=== PATIENT | female | born 1970 | race Caucasian/White ===

== ENCOUNTER 2020-11-30 08:41 | Outpatient (CLI) | payer BC, OTHER, SELFPAY ==
--- NOTE | ~2020-11-30 | MM_ITS ---
EXAMINATION: MM screening [facility] BI w jon HISTORY: Screening mammogram TECHNIQUE: Craniocaudal and mediolateral oblique 3-D tomosynthesis images were obtained and synthetic 2-D images were generated. CAD analysis was submitted and interpreted. COMPARISON: 07/03/2018, 07/02/2017, 06/22/2016 bilateral digital screening mammogram examinations BREAST PARENCHYMAL COMPOSITION: The breasts are heterogeneously dense, which may obscure small masses . FINDINGS: There is a 6 mm circumscribed mass 3 cm deep to the nipple and 7 mm circumscribed mass appr oximately 6.3 cm deep to the nipple on craniocaudal view. Diagnostic right mammogram and right breast ultrasound examination are recommended. No suspicious mass, architectural distortion or malignant calcification, skin thickening or retractio n of the left breast. There are scattered bilateral benign microcalcifications. IMPRESSION: 1. Right breast masses. 2. Diagnostic right mammogram and right breast ultrasound examination are recommended. BI-RADS Category 0: Incomplete: Needs additional imaging evaluation. Reviewed, dictated and finalized at location A. CIATE ACCOUNT MANAGER IMPRESSION: 1. Right breast masses. 2. Diagnostic right mammogram and right breast ultrasound examination are recom mended. BI-RADS Category 0: Incomplete: Needs additional imaging evaluation.
== END 2020-11-30 08:42 | disposition home or self-care (01) ==
LOC: ANHIMG 08:44
PROVIDERS: PCP Family Medicine; Visit Provider Obstetrics & Gynecology
DX: Z12.31 Encounter for screening mammogram for malignant neoplasm of breast (principal); R92.8 Other abnormal and inconclusive findings on diagnostic imaging of breast
CPT/HCPCS: 77063; 77067

== ENCOUNTER 2021-01-04 11:39 | Outpatient (CLI) | payer BC, OTHER, SELFPAY ==
--- NOTE | ~2021-01-04 | MMUS_ITS ---
EXAMINATION: MM diagnostic mammo unilat RT, US breast RT complete HISTORY: Follow-up right breast masses TECHNIQUE: Additional 3-D tomosynthesis images of the right breast were performed and synthetic 2-D i mages were generated. CAD analysis was submitted and interpreted. High resolution right breast ultras ound was performed. COMPARISON: Comparison to multiple prior studies sequentially, with oldest reviewed study dated 06/2014. BREAST PARENCHYMAL COMPOSITION: The breasts are heterogenously dense, which may obscure small masses. FINDINGS: MAMMOGRAPHIC FINDINGS: There is a 6 mm mass upper outer quadrant of the right breast, 3.5 cm from the nipple on CC view. Sub tle focal asymmetry laterally in the right breast on CC view in the middle third is less apparent wit h spot compression view. ULTRASOUND: Complete left breast ultrasound: There are are multiple cysts of the left breast at 7, 8 and 11:00 po sition of the breast, largest measuring 6 mm. These correspond to the area of mammographic abnormalit y. No suspicious sonographic abnormalities to suggest malignancy. IMPRESSION: 1. No evidence for malignancy in the right breast. Benign cysts. 2. Routine yearly screening mammogram and regular clinical breast examination are recommended. BI-RADS Category 2: Benign finding(s). Reviewed, dictated and finalized at location A. IMPRESSION: 1. No evidence for malignancy in the right breast. Benign cysts. 2. Routine yearly screening mammogram and regular clinical breast examination a re recommended. BI-RADS Category 2: Benign finding(s).
== END 2021-01-04 11:40 | disposition home or self-care (01) ==
LOC: ANHIMG 11:40
PROVIDERS: PCP Family Medicine; Visit Provider Obstetrics & Gynecology
DX: R92.8 Other abnormal and inconclusive findings on diagnostic imaging of breast (principal)
CPT/HCPCS: 76641; 77065

== ENCOUNTER → 2021-01-11 02:50 | Outpatient (CLI) | payer BC, OTHER, SELFPAY ==
[2021-01-11 18:08] LABS: SARS-CoV-2 RNA PCR Negative
== END ==
PROVIDERS: PCP Family Medicine; Visit Provider Internal Medicine Gastroenterology
DX: Z01.812 Encounter for preprocedural laboratory examination (principal); Z20.822 Contact with and (suspected) exposure to COVID-19
CPT/HCPCS: C9803; U0003; U0005

== ENCOUNTER 2021-01-14 00:41 | Day surgery (SDC) | payer BC, OTHER, SELFPAY ==
[2021-01-03 10:31] VITALS: BMI 25.9
[2021-01-14 10:33] VITALS: BP 115/80; PULSE 73; RESP 17; TEMP 36.8; O2SAT 98; BMI 25.9
[2021-01-14] MEDS: LACTATED RINGERS 1,000 ML 150 ML IV CONT (10:38)
--- NOTE | 2021-01-14 11:20 | WPDANESEPPF ---
Anes - Initial Pre Proc Eval Procedure: Operation Date: 01/14/21 11:30 Proposed Procedures p Screening Colonoscopy - Say Easton MD Date/Time: 01/14/21 11:20 Surgeon: Say Easton MD Pre Op Diagnosis: neoplasm screening Patient Data Age: 50 Gender: F Height: 5 ft 6 in Weight: 72.8 kg Last Vital Signs Temp 98.3 F 01/14/21 10:33 Pulse 73 01/14/21 10:33 Resp 17 01/14/21 10:33 BP 115/80 01/14/21 10:33 Pulse Ox 98 01/14/21 10:33 Allergies Allergy/AdvReac Type Severity Reaction Status Date / Time Sulfa (Sulfonamide Allergy Mild Hives Verified 01/14/21 10:31 Antibiotics) Home Medications Medication Instructions Recorded Confirmed Type fluticasone propionate 1 spray INTRANASAL DAILY 01/03/21 01/14/21 History Patient hx anesthesia problems: none Family hx anesthesia problems: none [facility] Past Medical History Medical History (Updated 01/14/21 @ 11:17 by Joo Washington MD) Healthy adult Social History Social History Smoking status: Never smoker Alcohol intake: never Substance use type: does not use Living arrangements: with family Spiritual care concerns: No Anes - Eval Final PreProcedure Day of Procedure 01/14/21 11:20 Patient weight: overweight Heart: regular rate and rhythm Lungs: clear to auscultation Airway: Mallampati scale class II Neurological: alert and oriented Last oral intake: >/= 8 hours ASA classification: II Emergent: no Anesthetic plan: proceed Anesthesia type and monitoring: general GIVS and standard monitoring Informed Consent: The patient's anesthetic plan and its attendant risks and benefits were discussed with the patient/family/POA. Questions were solicited and answers provided to the satisfaction of the patient/family/POA.
--- NOTE | 2021-01-14 11:45 | PM.HPGS ---
History of Present Illness History of Present Illness Consent: Risks, benefits, and alternatives have been discussed and questions answered. Patient agrees to proceed with procedure. Chief complaint: neoplasm screening Narrative: Twyla Lindsay is a 50 year old female here for first screening colonoscopy Review of Systems Constitutional: Constitutional: Denies headache(s) and Denies weakness Eyes: Eyes: Denies blurry vision ENT: Reports Normal hearing present, Denies headache(s) and Denies neck pain Cardiovascular: Cardiovascular: Denies chest pain and Denies dyspnea Respiratory: Respiratory: Denies dyspnea Gastrointestinal: Gastrointestinal: Reports no additional gastrointestinal complaints Genitourinary: Genitourinary: Denies dysuria Musculoskeletal: Musculoskeletal: Denies neck pain Integumentary/Breasts: Skin/Breast: Denies dry skin Neurologic: Reports Normal hearing present, Denies headache(s) and Denies weakness Psychiatric: Psychiatric: Denies anxiety Endocrine: Endocrine: Denies change in body appearance Hematologic/Lymphatic: Hematologic/Lymphatic: Denies easy bleeding Allergic/Immunologic: Allergic/Immunologic: Denies urticaria PMF Past Medical History Medical History (Updated 01/14/21 @ 11:46 by Say Easton MD) Colon cancer screening Family history of colon cancer in father Healthy adult Social History Social History Smoking status: Never smoker Alcohol intake: never Substance use type: does not use Living arrangements: with family Spiritual care concerns: No Meds Home Medications and Allergies Home Medications Medication Instructions Recorded Confirmed Type fluticasone propionate 1 spray INTRANASAL DAILY 01/03/21 01/14/21 History Allergies Allergy/AdvReac Type Severity Reaction Status Date / Time Sulfa (Sulfonamide Allergy Mild Hives Verified 01/14/21 10:31 Antibiotics) Vital Signs Vital Signs - 24 hr 01/14/21 10:33 Temperature 98.3 F Pulse Rate 73 Respiratory Rate 17 Blood Pressure 115/80 Pulse Oximetry 98 Exam Const: General: comfortable and no acute distress HENMT: General nose exam: Normal nares present Eyes: General: appearance normal, both eyes and all related structures Neck: Neck: no JVD Resp: Auscultation: clear to auscultation bilaterally Cardio: Rate: regular rate Rhythm: regular rhythm GI: Inspection: non-distended GI Palp: Yes Soft to palpation Skin: General skin exam: normal color Neuro: General: gait normal Speech: normal speech Extrem: General: normal to inspection Psych: Mental Status: mental status grossly normal Assessment and Plan Assessment and plan (1) Colon cancer screening: Code(s): Z12.11 - Encounter for screening for malignant neoplasm of colon Status: Acute (2) Family history of colon cancer in father: Code(s): Z80.0 - Family history of malignant neoplasm of digestive organs Status: Acute Assessment and Plan: proceed with colonoscopy
[2021-01-14 12:05] VITALS: BP 107/57; PULSE 78; RESP 17; O2SAT 98
[2021-01-14 12:15] VITALS: BP 103/57; PULSE 66; RESP 18; O2SAT 100
[2021-01-14 12:25] VITALS: BP 106/61; PULSE 69; RESP 17; O2SAT 100
== END 2021-01-14 12:34 | disposition home or self-care (01) ==
PROVIDERS: PCP Family Medicine; Visit Provider Internal Medicine Gastroenterology
PROC: 0DJD8ZZ Inspection of Lower Intestinal Tract, Via Natural or Artificial Opening Endoscopic (ICD-10-PCS; CPT 45378; principal; 2021-01-14 11:30)
DX: Z12.11 Encounter for screening for malignant neoplasm of colon (principal); K57.30 Diverticulosis of large intestine without perforation or abscess without bleeding; K64.8 Other hemorrhoids; Z80.0 Family history of malignant neoplasm of digestive organs
CPT/HCPCS: 45378; J2704; J7120

== ENCOUNTER → 2021-05-30 07:48 | Outpatient (REF) | payer BC, OTHER, SELFPAY | LOC: ANHLAB 07:48 | PROVIDERS: PCP Family Medicine; Visit Provider Nurse Practitioner | DX: C44.311 Basal cell carcinoma of skin of nose (principal) | CPT/HCPCS: 88305; 88331 ==

== ENCOUNTER → 2021-09-12 07:22 | Outpatient (REF) | payer BC, OTHER, SELFPAY | LOC: ANHLAB 07:22 | PROVIDERS: PCP Family Medicine; Visit Provider Nurse Practitioner | DX: C44.311 Basal cell carcinoma of skin of nose (principal) | CPT/HCPCS: 88305; 88331 ==

== ENCOUNTER 2022-06-08 07:28 | Outpatient (CLI) | payer BC, OTHER, SELFPAY ==
--- NOTE | ~2022-06-08 | MM_ITS ---
EXAMINATION: MM screening [facility] BI w jon HISTORY: Screening mammogram TECHNIQUE: Craniocaudal and mediolateral oblique 3-D tomosynthesis images were obtained and synthetic 2-D images were generated. CAD analysis was submitted and interpreted. COMPARISON: 01/04/2021 diagnostic right mammogram and complete right breast ultrasound examination 11/30/2020, 07/03/2018, 07/02/2017 bilateral screening mammogram examinations BREAST PARENCHYMAL COMPOSITION: FINDINGS: There is no evidence of suspicious mass, calcification, or architectural distortion to sugg est malignancy in either breast. There has been no suspicious interval change. IMPRESSION: 1. No mammographic evidence of malignancy. 2. Recommend routine screening mammography in one year. BI-RADS Category 1: Negative Reviewed, dictated and finalized at location A.
== END 2022-06-08 07:29 | disposition home or self-care (01) ==
LOC: ANHIMG 07:29
PROVIDERS: PCP Family Medicine; Visit Provider Obstetrics & Gynecology
DX: Z12.31 Encounter for screening mammogram for malignant neoplasm of breast (principal)
CPT/HCPCS: 77063; 77067

== ENCOUNTER 2023-06-21 09:34 | Outpatient (CLI) | payer BC, OTHER, SELFPAY ==
--- NOTE | ~2023-06-21 | MM_ITS ---
EXAMINATION: MM screening [facility] BI w jon HISTORY: Screening mammogram TECHNIQUE: Craniocaudal and mediolateral oblique 3-D tomosynthesis images were obtained and synthetic 2-D images were generated. CAD analysis was submitted and interpreted. COMPARISON: 06/08/2022, 01/04/2021, 11/30/2020 BREAST PARENCHYMAL COMPOSITION: There are scattered areas of fibroglandular density. FINDINGS: No suspicious mass, calcification, or architectural distortion are identified in either kerry ast to suggest malignancy. There has been no suspicious interval change. IMPRESSION: 1. No mammographic evidence of malignancy. 2. Recommend routine screening mammography in one year. BI-RADS Category 1: Negative Reviewed, dictated and finalized at location L.
== END 2023-06-21 09:35 | disposition home or self-care (01) ==
PROVIDERS: PCP Family Medicine; Visit Provider Obstetrics & Gynecology
DX: Z12.31 Encounter for screening mammogram for malignant neoplasm of breast (principal)
CPT/HCPCS: 77063; 77067

== ENCOUNTER 2024-02-26 10:05 | Outpatient (CLI) | payer OTHER, SELFPAY ==
--- NOTE | ~2024-02-26 | XR_ITS ---
EXAMINATION: XR lumbar spine 2-3V DATE: 02/26/2024 11:24 INDICATION: Acute bilateral low back pain without sciatica. TECHNIQUE: 3 views of lumbar spine were obtained. COMPARISON: None. FINDINGS: Bone alignment is normal. Vertebral body heights are normal. There is moderately decreased disc height at T11-T12. There are endplate osteophytes at many levels. There is multilevel moderate f acet joint osteoarthritis. IMPRESSION: 1. Mild lumbar spondylosis and moderate lower thoracic spondylosis. Reviewed, dictated and finalized at location A.
== END 2024-02-26 10:06 ==
PROVIDERS: PCP Pediatrics; Visit Provider Pediatrics
DX: M43.06 Spondylolysis, lumbar region (principal); M43.04 Spondylolysis, thoracic region
CPT/HCPCS: 72100

== ENCOUNTER 2024-07-15 07:16 | Outpatient (CLI) | payer OTHER, SELFPAY ==
--- NOTE | ~2024-07-15 | MM_ITS ---
EXAMINATION: MM screening [facility] BI w jon HISTORY: Screening TECHNIQUE: Craniocaudal and mediolateral oblique 3-D tomosynthesis images were obtained and synthetic 2-D images were generated. CAD analysis was submitted and interpreted. COMPARISON: Comparison to multiple prior studies sequentially, with oldest reviewed study dated 07/02. BREAST PARENCHYMAL COMPOSITION: Not dense: There are scattered areas of fibroglandular density. FINDINGS: There is no evidence of suspicious mass, calcification, or architectural distortion to sugg est malignancy in either breast. There has been no suspicious interval change. IMPRESSION: 1. No mammographic evidence of malignancy. 2. Recommend routine screening mammography in one year. BI-RADS Category 1: Negative Reviewed, dictated and finalized at location B.
== END 2024-07-15 07:17 | disposition home or self-care (01) ==
LOC: ANHIMG 07:17
PROVIDERS: PCP Obstetrics & Gynecology; Visit Provider Obstetrics & Gynecology
DX: Z12.31 Encounter for screening mammogram for malignant neoplasm of breast (principal)
CPT/HCPCS: 77063; 77067

== ENCOUNTER 2024-10-30 00:28 | Day surgery (SDC) | payer BC, OTHER, SELFPAY ==
[2024-10-14 10:52] VITALS: BMI 25.8
[2024-10-30 13:19] VITALS: BP 128/56; PULSE 68; RESP 17; TEMP 36.3; O2SAT 98; BMI 26.6
--- NOTE | 2024-10-30 13:26 | WPDANESEPPF ---
Anes - Initial Pre Proc Eval Procedure: Operation Date: 10/30/24 14:30 Proposed Procedures p Esophagogastroduodenoscopy - Say Easton MD Date/Time: 10/30/24 13:26 Surgeon: Say Easton MD Pre Op Diagnosis: heartburn, abd pain Patient Data Age: 54 Gender: F Height: 1.68 m Weight: 74.8 kg Last Vital Signs Temp 36.3 C L 10/30/24 13:19 Pulse 68 10/30/24 13:19 Resp 17 10/30/24 13:19 BP 128/56 L 10/30/24 13:19 Pulse Ox 98 10/30/24 13:19 O2 Del Method Room Air 10/30/24 13:19 Allergies Allergy/AdvReac Type Severity Reaction Status Date / Time Sulfa (Sulfonamide Allergy Mild Hives Verified 10/30/24 13:17 Antibiotics) Home Medications ?Medication ?Instructions ?Recorded ?Confirmed ?Type cholecalciferol (vitamin D3) 125 125 mcg PO DAILY 05/30/21 10/30/24 History mcg (5,000 unit) capsule omeprazole 40 mg capsule,delayed 40 mg PO DAILY 1 month #30 caps 07/09/24 10/30/24 Rx release estradiol 1 mg tablet (Estrace) 1 mg PO DAILY 09/03/24 10/30/24 History montelukast 10 mg tablet 10 mg PO DAILY 09/03/24 10/30/24 History (Singulair) ashwagandha 2,100 mg BYMOUTH DAILY 10/14/24 10/30/24 History ipratropium bromide 21 mcg (0.03 2 spray intranasal DAILY 10/14/24 10/30/24 History %) nasal spray vitamin B complex 1 tablet PO DAILY 10/14/24 10/30/24 History Patient hx anesthesia problems: none Family hx anesthesia problems: none Results Review: All pre-operative results and documents have been reviewed as part of the pre-operative evaluation. [facility] Past Medical History Medical History Heartburn Alternating constipation and diarrhea Abdominal discomfort Family history of colon cancer in father Colon cancer screening Healthy adult Surgical History Surgical History History of partial hysterectomy History of back surgery Family History Family History Father Diabetes mellitus Cancer Mother Cancer Sibling Cancer Social History Social History Smoking status: Never smoker Alcohol intake: current Drinks per week: 1 Substance use type: does not use Living arrangements: with family Spiritual care concerns: No Anes - Eval Final PreProcedure Day of Procedure 10/30/24 13:26 Patient weight: overweight Heart: regular rate and rhythm Lungs: clear to auscultation Airway: Mallampati scale class II Neurological: alert and oriented Last oral intake: >/= 8 hours ASA classification: II Emergent: no Anesthetic plan: proceed Anesthesia type and monitoring: general GIVS and standard monitoring Results Review: All pre-operative results and documents have been reviewed as part of the pre-operative evaluation. Informed Consent: The patient's anesthetic plan and its attendant risks and benefits were discussed with the patient/family/POA. Questions were solicited and answers provided to the satisfaction of the patient/family/POA.
[2024-10-30] MEDS: LACTATED RINGERS 1,000 ML 150 ML IV CONT (13:28)
--- NOTE | 2024-10-30 13:44 | PM.HPGS ---
History of Present Illness History of Present Illness Consent: Risks, benefits, and alternatives have been discussed and questions answered. Patient agrees to proceed with procedure. Chief complaint: heartburn, abd pain Narrative: Twyla Lindsay is a 54 year old female with gerd better with ppi, had EGD 2015 Review of Systems Review of Systems: All systems reviewed & are unremarkable except as noted in HPI and below PMFSH Past Medical History Medical History (Updated 10/30/24 @ 13:46 by Say Easton MD) GERD (gastroesophageal reflux disease) Heartburn Alternating constipation and diarrhea Abdominal discomfort Family history of colon cancer in father Colon cancer screening Healthy adult Surgical History Surgical History History of partial hysterectomy History of back surgery Family History Family History Father Diabetes mellitus Cancer Mother Cancer Sibling Cancer Social History Social History Smoking status: Never smoker Alcohol intake: current Drinks per week: 1 Substance use type: does not use Living arrangements: with family Spiritual care concerns: No Meds Home Medications and Allergies Home Medications ?Medication ?Instructions ?Recorded ?Confirmed ?Type cholecalciferol (vitamin D3) 125 125 mcg PO DAILY 05/30/21 10/30/24 History mcg (5,000 unit) capsule omeprazole 40 mg capsule,delayed 40 mg PO DAILY 1 month #30 caps 07/09/24 10/30/24 Rx release estradiol 1 mg tablet (Estrace) 1 mg PO DAILY 09/03/24 10/30/24 History montelukast 10 mg tablet 10 mg PO DAILY 09/03/24 10/30/24 History (Singulair) ashwagandha 2,100 mg BYMOUTH DAILY 10/14/24 10/30/24 History ipratropium bromide 21 mcg (0.03 2 spray intranasal DAILY 10/14/24 10/30/24 History %) nasal spray vitamin B complex 1 tablet PO DAILY 10/14/24 10/30/24 History Allergies Allergy/AdvReac Type Severity Reaction Status Date / Time Sulfa (Sulfonamide Allergy Mild Hives Verified 10/30/24 13:17 Antibiotics) Vital Signs Vital Signs - 24 hr 10/30/24 13:19 Temperature 97.3 F L Pulse Rate 68 Respiratory Rate 17 Blood Pressure 128/56 L Pulse Oximetry 98 Oxygen Delivery Room Air Exam Const: General: comfortable and no acute distress HENMT: Face/Nose/Sinus: Normal nares present Eyes: General: appearance normal, both eyes and all related structures Neck: Neck: no JVD Resp: Auscultation: clear to auscultation bilaterally Cardio: Rate: regular rate Rhythm: regular rhythm GI: Inspection: non-distended GI Palp: Yes Soft to palpation Skin: General skin exam: normal color Neuro: General: gait normal Speech: normal speech Extrem: General: normal to inspection Psych: Mental Status: mental status grossly normal Assessment and Plan Assessment and plan (1) GERD (gastroesophageal reflux disease): Code(s): K21.9 - Gastro-esophageal reflux disease without esophagitis Status: Acute Assessment and Plan: egd with bx on ppi
[2024-10-30 13:54] VITALS: BP 104/62; PULSE 79; RESP 22; O2SAT 100
[2024-10-30 14:04] VITALS: BP 114/72; PULSE 64; RESP 19; O2SAT 100
[2024-10-30 14:14] VITALS: BP 118/71; PULSE 63; RESP 21; O2SAT 96
== END 2024-10-30 14:25 | disposition home or self-care (01) ==
PROVIDERS: PCP Family Medicine; Referring Provider Nurse Practitioner Family; Visit Provider Internal Medicine Gastroenterology
PROC: 0DJ08ZZ Inspection of Upper Intestinal Tract, Via Natural or Artificial Opening Endoscopic (ICD-10-PCS; CPT 43239; principal; 2024-10-30 14:30)
DX: K21.9 Gastro-esophageal reflux disease without esophagitis (principal); Z98.890 Other specified postprocedural states; Z98.1 Arthrodesis status; Z80.0 Family history of malignant neoplasm of digestive organs
CPT/HCPCS: 43239; 88305; J2003; J2704; J7120

== ENCOUNTER 2024-11-19 09:20 | Outpatient (CLI) | payer BC, OTHER, SELFPAY ==
--- NOTE | ~2024-11-19 | US_ITS ---
EXAMINATION: US abdomen limited DATE: 11/19/2024 10:03 INDICATION: Epigastric abdominal pain. TECHNIQUE: Multiple grayscale and Doppler ultrasound images of the abdomen were obtained. COMPARISON: None FINDINGS: The visualized portions of the head, body, and tail of the pancreas are normal. The liver i s normal without focal lesion. There is normal flow in main portal vein. The gallbladder is normal in size. No gallstones or gallbladder wall thickening. There is no sonographic Velasquez's sign. The commo n duct is normal and measures 5 mm. IMPRESSION: 1. Normal right upper quadrant ultrasound. Reviewed, dictated and finalized at location A. N SKIN LIFTER
--- OUTSIDE RECORDS SUMMARY | 2024-11-19 10:00 | XMS_ITS | Patient Health Summary ---
Author Organization [facility] Address [address] [place] [address] Care Team Providers Care Machine Wedger Name Role Phone Unavailable Primary Care Provider Unavailabl e Note from [facility],non-owned Affiliates and Associated Physician Practices is amultiple site organization consisting of ambulatory clinics and hospital sitesin [place], [place], [place] and [place]. This disclosure is being madepursuant to the Care Everywhere program and may not contain all information available regarding this patient. Last updated 18.[facility] Social History Tobacco Use Types Packs/Day Years Used Date Smoking Tobacco: Never Assessed Sex and Gender Information Value Date Recorded Sex Assigned at Not on file Gender Identity Not on file Sexual Orientation Not on file Procedures * GROSS + MICRO EXAM(Performed 12/26/2000) Results * GROSS + MICRO EXAM (12/26/2000 7:41 AM MARINE ARCHITECT) Result CASE NUMBER [id number] Comment: ORDERING PHYSICIAN ??CYDNEY PANG SPECIMEN TYPE ?Placenta Non 3rd Tr Date ? 12/26/2000 Physician ?Jr. Pang W. Gross Description ? The specimen is received in a ??formalin-filled container labeled with the patient's name and placenta and consists of a 430 gram placenta with attached membranes, cord and disc. ??The placental disc measures 19 x 14 x 1 cm. ??The membranes are translucent and pinkish, ruptured at the margin under the placenta. ??The umbilical cord is eccentrically inserted into the placental disc and measures 10.5 x 0.9 cm. ??The cut section of the umbilical cord reveals three vessels. Smaller disc of placenta is from the larger disc of placenta by 5 cm. distance. ??The smaller disc measures 10 x 8 cm. ??There is no separate cord identified. ??The surface has prominent vascular arcades without nodules. ??The maternal surface has a deep pinkish and has some blood clots. ??Serial sections of the placenta reveal an unremarkable placental tissue. ??No gross visual infarcts are identified. ?? Traffic Routing Engineer sections of the cord and membranes are submitted in cassette A ??food products sales representative section of the placental disc are submitted in cassettes B and C. IV/bk Microscopic Exam ? Microscopic examination of the chorioamniotic membranes reveals chorioamniotic membranes with patchy areas of acute inflammation and necrosis. ??Sections of the umbilical cord reveal three vascular channels with no evidence of funisitis or thrombosis. ??The chorionic villi are small, mature, well-vascularized with syncytial knots noted. ?? There is no evidence of villitis. ??Adjacent to the stratum basalis is blood and fibrin with few infarcted villi present. Diagnosis ?I. ??Placenta, excision ?A. ??Mature placenta, 430 grams. ?B. ??Succenturiate lobe. ?C. ??Three vessel umbilical cord with no pathologic changes. ?D. ??Acute chorioamnionitis, mild. ?E. ??Infarct present. Racing Secretary And Handicapper ? bk Pathologist ?Jerri Monteiro M.D. [place]. ?12/27/2000 1604 <2> CPT code ? 8307/82198 MISCELLANEOUS SAMPLES / Unknown 12/26/2000 7:41 AM MARINE ARCHITECT 12/26/2000 7:41 AM MARINE ARCHITECT Historical Provider MD LAB - PATHOLOGY/C YTOLOGY ORDERABLES
--- OUTSIDE RECORDS SUMMARY | 2024-11-19 10:00 | XMS_ITS | Clinical Summary ---
Author Organization [facility] Address [address] [place] [address]. [place], [place] [id number] [place] [address] Care Team Providers Care Fire Extinguisher Installer Name Role Phone None, Provider Primary Care Provider Unavaila ble Social History Tobacco Use Types Packs/Day Years Used Date Smoking Tobacco: Never Assessed Comments Unknown Sex and Gender Information Value Date Recorded Sex Assigned at Not on file Legal Sex Female 7:57 AM CDT Gender Identity Not on file Sexual Orientation Not on file Last Filed Vital Signs Vital Sign Reading Time Taken Comments Blood Pressure 108/60 02/28/2016 3:13 PM CDT Pulse 79 02/28/2016 3:13 PM CDT Temperature - - Respiratory Rate - - Oxygen Saturation - - Inhaled Oxygen Concentration - - Weight 62.1 kg (137 lb) 02/28/2016 3:13 PM CDT Height 167.6 cm (5' 6 ) 02/28/2016 3:13 PM CDT Body Mass Index 22.11 02/28/2016 3:13 PM CDT Plan of Treatment Health Maintenance Due Date Last Done Comments Cervical Cancer Screening Pap Smear (Age 30 to 64) Every 3 Years 1968 Colorectal Cancer Screening Colonoscopy (10 Years) 1968 Annual Physical 1971 Hepatitis C 1986 Hepatitis B Vaccines (1 of 3 - 19+ 3-dose series) 1987 Cervical Cancer Screening Pap with HPV Testing (Age 30 to 64) Every 5 Years 1998 Cervical Cancer Screening with HPV 1998 Mammogram Screening 2008 Zoster Vaccines (2 of 2) 02/06/2020 12/12/2019 COVID-19 Vaccine ( season) 2024 11/04/2021, 02/19/2021, 01/24/2021, Additional history exists Influenza Adult (#1) 2024 07/24/2022, 08/26/2019, 07/13/2017, Additional history exists DTaP, Tdap and Td Vaccines (2 - Td or Tdap) 12/10/2028 12/10/2018 Meningococcal B Vaccine Aged Out No l onger eligible based on patient's age to complete this topic Meningococcal Vaccine Aged Out No phil abdon eligible based on patient's age to complete this topic Pneumococcal Vaccine: Pediatrics (0 to 5 Years) and At-Risk Patients (6 to 64 Years) Aged Out No longer eligible based on patient's age to complete this topic RSV Immunizations Under 20 Months Aged Out No longer eligible based on patient's age to complete this topic Insurance [facility] Care Teams Fire Extinguisher Installer Relationship Specialty Start Date End Date None, Provider, MD PCP - General UNKNOWN PHYSICIAN SPECIALTY 01/02/23
--- OUTSIDE RECORDS SUMMARY | 2024-11-19 10:00 | XMS_ITS | Clinical Summary ---
Author Organization [facility] Address [address] [place] [address] Care Team Providers Care Aircraft Engine Mechanic Name Role Phone Unavailable Primary Care Provider Unavailabl e Source Comments [facility],non-owned Affiliates and Associated Physician Practices is amultiple site organization consisting of ambulatory clinics and hospital sitesin [place], [place], [place] and [place]. This disclosure is being madepursuant to the Care Everywhere program and may not contain all information available regarding this patient. Last updated 18.[facility] [employer] Social History Tobacco Use Types Packs/Day Years Used Date Smoking Tobacco: Never Assessed Sex and Gender Information Value Date Recorded Sex Assigned at Not on file Gender Identity Not on file Sexual Orientation Not on file Plan of Treatment Health Maintenance Due Date Last Done Comments COLOGUARD (AGES 45-75) - COL ON CA SCREENING 1968 COLON MONITORING 1968 COLONOSCOPY - COLON CA SCREENING 1968 CT COLONOGRAPHY - COLON CA SCREENING 1968 Colorectal Cancer Screening 1968 FIT - COLON CA SCREENING 1968 FLEX SIG - COLON CA SCREENING 1968 LIPID TESTING 1968 MAMMOGRAM 1968 PAP SMEAR 1968 HIV SCREENING 1983 HEPATITIS C SCREENING 03/01/1986 DTAP/TDAP/TD VACCINES (1 - Tdap) 1987 HEPATITIS B VACCINE (1 of 3 - 19+ 3-dose series) 1987 PNEUMOCOCCAL VACCINE 50+ (1 of 1 - PCV) 2018 ZOSTER VACCINE (1 of 2) 2018 COVID-19 VACCINE ( - 2023-2 5 season) 2024 INFLUENZA VACCINE (#1) 2024 DEPRESSION SCREENING 10/22/2024 HIB VACCINE Aged Out No longer eligi ble based on patient's age to complete this topic HPV VACCINE Aged Out No longer eligi ble based on patient's age to complete this topic MENINGOCOCCAL (Group B) VACCINE Aged Out No longer eligible based on patient's age to complete this topic MENINGOCOCCAL VACCINE Aged Out No phil abdon eligible based on patient's age to complete this topic
--- OUTSIDE RECORDS SUMMARY | 2024-11-19 10:00 | XMS_ITS | Clinical Summary ---
Author Organization [facility] Address [address], [address] [address] Phone Care Team Providers Care Flour Inspector Name Role Phone Unavailable Primary Care Provider Unavailabl e Allergies Active Allergy Reactions Criticality Noted Date Comments Sulfa Antibiotics Hives 07/07/2016 Medications Omeprazole (PRILOSEC PO) Take 1 Tab by mouth daily. Active Loratadine (CLARITIN PO) Take 1 Tab by mouth daily as needed. Active Pseudoephedrine HCl (SUPHEDRIN PO) Take by mouth. 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 Not on file Not on file Not on file Last Filed Vital Signs Vital Sign Reading Time Taken Comments Blood Pressure 103/70 07/12/2016 11:50 AM CDT Pulse 59 07/12/2016 8:58 AM CDT Temperature 36 ??C (96.8 ??F) 07/12/2016 11:50 AM CDT Respiratory Rate 15 07/12/2016 11:50 AM CDT Oxygen Saturation 100% 07/12/2016 11:50 AM CDT Inhaled Oxygen Concentration - - Weight 61.2 kg (135 lb) 07/18/2016 8:35 AM CDT Height 167.6 cm (5' 6 ) 07/18/2016 8:35 AM CDT Body Mass Index 21.79 07/18/2016 8:35 AM CDT Plan of Treatment Health Maintenance Due Date Last Done Comments Hepatitis C Virus (HCV) Screening 1968 TdaP Immunization 1968 Hepatitis B Immunization (1 of 3 - 19+ 3-dose series) 1987 Colonoscopy 2013 Colorectal Cancer Screening 2013 Cologuard 2018 Immunochemical Fecal Occult Blood 2018 Mammogram 2018 Pneumococcal Immunization (5 0+ years) (1 of 1 - PCV) 2018 Zoster Immunization (1 of 2) 2018 Influenza Immunization (#1) 2024 SARS-COV-2 Immunization ( - 2023- season) 2024 Respiratory Syncytial Virus (RSV) Immunization (Adult) (1 - 1-dose 75+ series) 2043 Meningococcal Immunization (ACWY) Aged Out No longer eligible based on patient's age to complete this topic Pneumococcal Immunization Combined Aged Out No longer eligible based on patient's age to complete this topic Rotavirus Immunization Aged Out No lo nger eligible based on patient's age to complete this topic Insurance [facility]
--- OUTSIDE RECORDS SUMMARY | 2024-11-19 10:00 | XMS_ITS | Referral Summary ---
Author Organization [facility] Address [address] [place] [address] Care Team Providers Care Terrazzo Laborer Name Role Phone Unavailable Primary Care Provider Unavailabl e Source Comments [facility],non-owned Affiliates and Associated Physician Practices is amultiple site organization consisting of ambulatory clinics and hospital sitesin [place], [place], [place] and [place]. This disclosure is being madepursuant to the Care Everywhere program and may not contain all information available regarding this patient. Last updated 18.[facility] Social History Tobacco Use Types Packs/Day Years Used Date Smoking Tobacco: Never Assessed Sex and Gender Information Value Date Recorded Sex Assigned at Not on file Gender Identity Not on file Sexual Orientation Not on file Plan of Treatment Not on file
== END 2024-11-19 09:21 | disposition home or self-care (01) ==
LOC: ANHIMG 09:22
PROVIDERS: PCP Family Medicine; Visit Provider Nurse Practitioner
DX: K21.9 Gastro-esophageal reflux disease without esophagitis (principal); R10.13 Epigastric pain
CPT/HCPCS: 76705

== ENCOUNTER 2024-12-31 07:30 | Outpatient (CLI) | payer BC, OTHER, SELFPAY ==
--- NOTE | ~2024-12-31 | NM_ITS ---
EXAMINATION: NM hepatobiliary wo pharm DATE: 12/31/2024 10:20 INDICATION: Epigastric abdominal pain. COMPARISON: Ultrasound 11/19/2024 TECHNIQUE: 5 mCi Tc-99m mebrofenin (Choletec) was administered intravenously. Scintigraphic images o f the abdomen were obtained for one hour. Then, the patient drank 8 oz Ensure, and imaging was contin ued for 60 minutes. FINDINGS: There is normal clearance of radiotracer from the blood pool. There is homogeneous tracer u ptake by the liver. Activity progresses to the bowel and gallbladder. Gallbladder ejection fraction (GBEF) was 53%. Note that with this technique, normal GBEF >= 33%. IMPRESSION: 1. Normal hepatobiliary scintigraphy. Reviewed, dictated and finalized at location B.
--- OUTSIDE RECORDS SUMMARY | 2024-12-31 07:34 | XMS_ITS | Clinical Summary ---
Author Organization [facility] Address [address] [place] [address] Care Team Providers Care Geodetic Advisor Name Role Phone Unavailable Primary Care Provider Unavailabl e Source Comments [facility],non-owned Affiliates and Associated Physician Practices is amultiple site organization consisting of ambulatory clinics and hospital sitesin [place], [place], [place] and [place]. This disclosure is being madepursuant to the Care Everywhere program and may not contain all information available regarding this patient. Last updated 18.[facility] [employer] Social History Tobacco Use Types Packs/Day Years [...] to complete this topic MENINGOCOCCAL (Group B) VACC INE SHARED DECISION-MAKING Aged Out No longer eligibl e based on patient's age to complete this topic MENINGOCOCCAL GROUPS A/C/Y/W VACCINE Aged Out No longer eligible b ased on patient's age to complete this topic
--- OUTSIDE RECORDS SUMMARY | 2024-12-31 07:34 | XMS_ITS | Referral Summary ---
Author Organization [facility] Address [address] [place] [address] Care Team Providers Care Spool Carrier Name Role Phone Unavailable Primary Care Provider Unavailabl e Source Comments [facility],non-owned Affiliates and Associated Physician Practices is amultiple site organization consisting of ambulatory clinics and hospital sitesin [place], [place], [place] and [place]. This disclosure is being madepursuant to the Care Everywhere program and may not contain all information available regarding this patient. Last updated 18.[facility] Social History Tobacco Use Types Packs/Day Years Used Date Smoking Tobacco: Never Assessed Sex and Gender Information Value Date Recorded Sex Assigned at Not on file Gender Identity Not on file Sexual Orientation Not on file Plan of Treatment Not on file
--- OUTSIDE RECORDS SUMMARY | 2024-12-31 07:34 | XMS_ITS | Clinical Summary ---
Author Organization [facility] Address [address] [place] [id number] Care Team Providers Care Lacquer Spray Booth Operator Name Role Phone None, Provider Primary Care [...] patient's age to complete this topic Insurance [employer] Care Teams Lacquer Spray Booth Operator Relationship Specialty Start Date End Date None, Provider, PCP - General UNKNOWN PHYSICIAN SPECIALTY 01/02/23
--- OUTSIDE RECORDS SUMMARY | 2024-12-31 07:34 | XMS_ITS | Patient Health Summary ---
Author Organization [facility] Address [address] [place] [address] Care Team Providers Care Police Detective Name Role Phone Unavailable Primary Care Provider Unavailabl e Note from [facility],non-owned Affiliates and Associated Physician Practices is amultiple site organization consisting of ambulatory clinics and hospital sitesin [place] and [place]. This disclosure is being madepursuant to the Care Everywhere program and may not contain all information available regarding this patient. Last updated 18.[facility] [employer] Social History Tobacco Use Types Packs/Day Years Used Date Smoking Tobacco: Never Assessed Sex and Gender Information Value Date Recorded Sex Assigned at Not on file Gender Identity Not on file Sexual Orientation Not on file Procedures * GROSS + MICRO EXAM(Performed 12/26/2000) Results * GROSS + MICRO EXAM (12/26/2000 7:41 AM HIGH SCHOOL MATH TEACHER) Result CASE NUMBER [id number] Comment: ORDERING PHYSICIAN CYDNEY PANG SPECIMEN TYPE Placenta Non 3rd Tr Date 12/26/2000 Physician Jr. Pang W. Gross Description The specimen is received in a formalin-filled container labeled with the patient's name and placenta and consists of a 430 gram placenta with attached membranes, cord and disc. The placental disc measures 19 x 14 x 1 cm. The membranes are translucent and pinkish, ruptured at the margin under the placenta. The umbilical cord is eccentrically inserted into the placental disc and measures 10.5 x 0.9 cm. The cut section of the umbilical cord reveals three vessels. Smaller disc of placenta is from the larger disc of placenta by 5 cm. distance. The smaller disc measures 10 x 8 cm. There is no separate cord identified. The surface has prominent vascular arcades without nodules. The maternal surface has a deep pinkish and has some blood clots. Serial sections of the placenta reveal an unremarkable placental tissue. No gross visual infarcts are identified. Case Finisher sections of the cord and membranes are submitted in cassette A door to door sales representative section of the placental disc are submitted in cassettes B and C. IV/bk Microscopic Exam Microscopic examination of the chorioamniotic membranes reveals chorioamniotic membranes with patchy areas of acute inflammation and necrosis. Sections of the umbilical cord reveal three vascular channels with no evidence of funisitis or thrombosis. The chorionic villi are small, mature, well-vascularized with syncytial knots noted. There is no evidence of villitis. Adjacent to the stratum basalis is blood and fibrin with few infarcted villi present. Diagnosis I. Placenta, excision A. Mature placenta, 430 grams. B. Succenturiate lobe. C. Three vessel umbilical cord with no pathologic changes. D. Acute chorioamnionitis, mild. E. Infarct present. Director Of Corporate Strategy bk Pathologist Jerri Monteiro M.D. [place]. 12/27/2000 1604 <2> CPT code 8307/66064 MISCELLANEOUS SAMPLES / Unknown 12/26/2000 7:41 AM HIGH SCHOOL MATH TEACHER 12/26/2000 7:41 AM HIGH SCHOOL MATH TEACHER Historical Provider LAB - PATHOLOGY/C YTOLOGY ORDERABLES
--- OUTSIDE RECORDS SUMMARY | 2024-12-31 07:34 | XMS_ITS | Clinical Summary ---
Author Organization [facility] Address [address], [address] [address] Phone Care Team Providers Care Baggage Porter Head Name Role Phone Unavailable Primary Care Provider [...] 59 07/12/2016 8:58 AM CDT Temperature 36 C (96.8 F) 07/12/2016 11:50 AM CDT Respiratory Rate 15 [...] Immunization (#1) 2024 SARS-COV-2 Immunization ( - season) 2024 Respiratory Syncytial Virus (RSV) Immunization (Adult) (1 - 1-dose 75+ series) 2043 Meningococcal Immunization (ACWY) Aged Out No longer eligible based on patient's age to complete this topic Pneumococcal Immunization Combined Aged Out No longer eligible based on patient's age to complete this topic Rotavirus Immunization Aged Out No lo nger eligible based on patient's age to complete this topic Insurance [facility]
== END 2024-12-31 07:31 | disposition home or self-care (01) ==
PROVIDERS: PCP Family Medicine; Visit Provider Nurse Practitioner
DX: R10.13 Epigastric pain (principal); K21.9 Gastro-esophageal reflux disease without esophagitis
CPT/HCPCS: 78226; A9537